=== PATIENT | male | born 1925 | race Caucasian/White ===

== ENCOUNTER 2016-09-01 10:52 | Emergency (ER) | payer OTHER, MEDICARE ==
[~2016-09-01] VITALS: Ht 172.7 cm; Wt 78.5 kg
[~2016-09-01 10:52] MED LIST: AMARYL4 M1 PO; AMIODARONE HCL200 M1 PO; CORDARONE200 MG PO; DAILY MULTIPLE1 EACH PO; DULCOLAX10 M1 RC; ESCITALOPRAM OX10 MG PO; FLEET ENEMA133 ML RC; GLUCAGON EMERGEN1 M1 IM; GLUCOSE GEL38 GM PO; HALOPERIDOL1 M1 PO; LANTUS SOL100 UNIT/1 SC; LEXAPRO5 M1 PO; LIDOCAINE1 EACH TOP; LIDODERM1 EACH EXT; MAGNESIUM400 M1 PO; MELOXICAM15 M1 PO; METOPROLOL TART25 M1 PO; MILK OF MA400 MG/52 PO; NAPROXEN250 M1 PO; NOVOLOG100 UNIT/2 SC; NYSTATIN60 GM TOP; OXACILLIN SODIUM2 G1 IV; POTASSIUM CHLO20 ME2 PO; PRAVACHOL20 M2 PO; REMEDY CALAZIM113 G1 TOP; RISPERDAL0.25 M1 PO; TRAMADOL HCL50 M1 PO; TRAZODONE HCL50 M1 PO; TYLENOL325 M1 PO
--- NOTE | 2016-09-01 11:40 | RADIOLOGY REPORT ---
EXAMINATION: XR ELBOW, LEFT CLINICAL INFORMATION: Left elbow swelling and bruising COMPARISON: None TECHNIQUE: Four views of the left elbow. FINDINGS: There is no acute fracture or dislocation. Joint spaces are maintained. Alignment is anatomic. Small osteophyte at the coronoid. Minimal calcification seen adjacent to the medial humeral epicondyle, possibly associated with the common flexor tendon. There is no joint effusion. Soft tissue swelling overlies the olecranon. Fluid extends along the ulnar aspect of the forearm. IMPRESSION: Soft tissue swelling overlying the olecranon could be associated with bursitis. No acute osseous abnormality.
--- NOTE | 2016-09-01 13:27 | ED GENERAL ADULT ---
History of Present Illness General Chief Complaint: Upper Extremity Problem Stated Complaint: LFT ARM DISCOLORATTION/BRUISING Source: patient Exam Limitations: no limitations Allergies Coded Allergies: morphine (UNKNOWN 07/05/15) Reconcile Medications Amiodarone HCl 200 MG TABLET 1 TAB PO DAILY HEART (Reported) Aspirin (Aspirin*) 81 MG TAB.CHEW 2 TAB PO DAILY HEART HEALTH (Reported) Escitalopram Oxalate 10 MG TABLET 1.5 TAB PO DAILY MOOD (Reported) Insulin Aspart (Novolog) 100 UNIT/1 ML VIAL DIABETES (Reported) Insulin Glargine,Hum.rec.anlog (Lantus Solostar) 100 UNIT/ML (3 ML) INSULN.PEN 18 UNIT SC DAILY DIABETES (Reported) Metoprolol Tartrate 25 MG TABLET 0.5 TAB PO BID HEART HEALTH (Reported) Multivitamin (Daily Multiple Vitamin) 1 EACH TABLET 1 TAB PO DAILY VITAMIN SUPPORT (Reported) [place]-3 Fatty Acids/Fish Oil (Fish Oil 1,000 MG Capsule) 340 MG-1,000 MG CAPSULE 1 CAP PO BID SUPPLEMENT (Reported) Potassium Chloride 20 MEQ TAB.ER.PRT 1 TAB PO DAILY SUPPLEMENT (Reported) Pravastatin Sodium (Pravachol) 20 MG TABLET 1 TAB PO QPM CHOLESTEROL ( Reported) Risperidone (Risperdal) 0.25 MG TABLET 1 TAB PO QHS AGITATION (Reported) Saxagliptin (Onglyza) 5 MG TABLET 1 TAB PO DAILY DIABETES (Reported) Trazodone HCl 50 MG TABLET 1 TAB PO QHS INSOMNIA (Reported) Ubidecarenone (Co Q-10) 100 MG CAPSULE 1 CAP PO DAILY SUPPLEMENT (Reported) Triage Note: PT TO ER WITH COMPLAINTS OF INCREASED BRUISING TO L ARM, PT TAKES THINNERS, WAS SEEN AT WALK IN YESTERDAY AND TOLD THAT HE NEEDS BLOOD WORK BUT THE LAB WAS CLOSED. PT STATES THAT HE NOTED THAT ELBOW WAS SWOLLEN SUNDAY AND BY SUNDAY THE BRUISING AND SWELLING STARTED. DENIES PAIN TO AREA. WHEN ASKED ABOUT INJURY , PT IS UNSURE BUT HE THINKS HE HIT ON DOOR WAY Triage Nurses Notes Reviewed? yes HPI: 89 yo Male with past medical history of atrial fibrillation on ASA 162mg daily, pacemaker in situ, diabetes mellitus, intracranial bleeding, MSSA septicemia, Right shoulder infection and I&D last year, is here because of left sided elbow bruise that he first noticed on Sunday. He went to urgent care clinic yesterday but could not run blood work, so was refered to the ED for workup and "blood thinner" test. He does not recall how he got the bruise in the first place. He thinks he must have banged it against a wall or a furniture. He denies neuropathy (and its symptoms). He has no problem moving his arm, elbow and his wrist, and denies any pain either. he is concerned about the increased amount of bruise and whether it could be bleeding from within or not. He denies any similar incident in the past, but did have an episode of intracranial bleeding. He denies fever, redness/warmth of the affected elbow joint. (ELLEN MOJICA MD) Vital Signs & Intake/Output Vital Signs & Intake/Output Vital Signs Date Time Temp Pulse Resp B/P B/P Pulse O2 O2 Flow FiO2 Mean Ox Delivery Rate 09/01 1544 82 164/86 09/01 1422 99 Room Air 09/01 1103 98.1 84 18 183/92 98 Room Air Past History Travel History Traveled to [place] past 21 day No Medical History Neurological: dementia, INTRACRANIAL BLEED EENT: NONE Cardiovascular: AFIB (paroxysmal), CAD (status post 5 stents), hypertension, hyperlipidemia, PVD Respiratory: NONE Gastrointestinal: NONE Hepatic: NONE Renal: NONE Musculoskeletal: NONE Psychiatric: NONE Endocrine: diabetes Blood Disorders: NONE Cancer(s): 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 (ELLEN MOJICA MD) Medical History Any Pertinent Medical History? see below for history Family History Hx Contributory? No (JUAN MANUEL ANDERSON DO) Review of Systems Review of Systems Constitutional: Reports: no symptoms. EENTM: Reports: no symptoms. Respiratory: Reports: no symptoms. Cardiovascular: Reports: no symptoms. GI: Reports: no symptoms. Genitourinary: Reports: no symptoms. Musculoskeletal: Reports: no symptoms. Skin: Reports: see HPI, rash. Neurological/Psychological: Reports: no symptoms. Hematologic/Endocrine: Reports: see HPI, bruising. All Other Systems: Reviewed and Negative (ELLEN MOJICA MD) Physical Exam Physical Exam General Appearance: well developed/nourished, no apparent distress, alert, awake , comfortable Head: atraumatic, normal appearance Eyes: Bilateral: normal appearance, PERRL, EOMI. Ears, Nose, Throat: normal pharynx, normal ENT inspection, hearing grossly normal Neck: normal inspection, supple, full range of motion Respiratory: normal breath sounds, chest non-tender, no respiratory distress Cardiovascular: regular rate/rhythm, normal peripheral pulses Peripheral Pulses: 4+ radial (R), 4+ radial (L) Extremities: normal capillary refill, normal range of motion, no edema, left elbow has extensive bruise Neurologic/Psych: no motor/sensory deficits, awake, alert, oriented x 3, normal gait, normal mood/affect Reflexes: 4+: knee (R), knee (L). Skin: intact, ecchymosis (left elbow), Patient has a large area of echhymosis approx 20 cm x 10 cm over his misdial aspect of his left elbow extending to the forearm., Patient as a healing/resolving bruise over the medial aspect of the riht forearm. Lymphatic: no anterior cervical doreen Core Measures ACS in differential dx? No CVA/TIA Diagnosis: No Severe Sepsis Present: No Septic Shock Present: No (ELLEN MOJICA MD) Core Measures ACS in differential dx? No CVA/TIA Diagnosis: No Severe Sepsis Present: No Septic Shock Present: No (JUSTIN HEREDIA,JUAN MANUEL Moreau) Progress Comments: Since the patient's vitals are stable, and he doesn't seem to be active bleeding. Given his hstory of intracranial bleed and this extensive ecchymosis, I ordered PT, PTT, CBC (for h/H), and would wait for the results, in case there is any derangement in any of those. Patient is on ASA but we cant to ascertain if that is the only cause of his bruising extensively. Of note, he is not on any anticoaluants (for afib) for unknown reason (?fall risk). Dr Anderson is made aware of the situation and I signed out the patient to Dr Anderson. (ELLEN MOJICA MD) Differential Diagnoses I considered the following diagnoses in my evaluation of the patient: [Contusion , coagulopathy, thrombocytopenia, aspirin-induced platelet affect, ecchymosis, traumatic bursitis, DVT] Plan of Care: Orders Procedure Date/time Status PARTIAL THROMBOPLASTIN TIME 09/01 134 Complete PROTHROMBIN TIME 09/01 134 Complete CBC WITHOUT DIFFERENTIAL 09/01 134 Complete Laboratory Tests 09/01/16 1425: PT 10.8, INR 1.03, APTT 34, CBC w Diff NO MAN DIFF REQ, RBC 4.75, MCV 88.5, MCH 28.9, RDW 13.4, MPV 7.8, Gran % 69.9, Lymphocytes % 18.5 L, Monocytes % 9.2, Eosinophils % 2.1, Basophils % 0.3, Absolute Granulocytes 4.5, Absolute Lymphocytes 1.2, Absolute Monocytes 0.6, Absolute Eosinophils 0.1, Absolute Basophils 0, PUBS MCHC 32.6 L Initial ED EKG: none (JUAN MANUEL ANDERSON DO) Departure Departure Condition: Stable Referrals: ЕЛЕНА JOSUE,BETTY Ames (PCP/Family) Departure Forms: Customer Survey General Discharge Information (ELLEN MOJICA MD) Departure Disposition: STILL A PATIENT Clinical Impression Primary Impression: Contusion Comments 09/01/16 3:25 PM The patient was seen and evaluated by me. He says that he bruised his left elbow several days ago. He developed ecchymosis to the left elbow. There is free range of motion. X-rays negative for fracture. He does have ecchymosis to the medial aspect of the left elbow. There is no objective swelling. Excellent radial pulse. It is nontender. Platelets are normal. He is on aspirin 160 mg daily. INR is normal. Assessment and plan contusion, ecchymosis left elbow. (JUAN MANUEL ANDERSON DO) Critical Care Note Critical Care Note Critical Care Time: non-applicable (JUAN MANUEL ANDERSON DO)
[2016-09-01] MEDS ORDERED: CO Q-10100 MG PO (13:58)
[2016-09-01] MEDS ORDERED: ASPIRIN81 M4 PO (13:58)
[2016-09-01] MEDS ORDERED: FISH OIL 1,0001 EACH PO (13:59)
[2016-09-01] MEDS ORDERED: ONGLYZA5 M1 PO (14:01)
[2016-09-01 14:44] LABS: ABSOLUTE BASOPHIL COUNT 0 /CUMM (0.0-0.2); ABSOLUTE EOSINOPHIL COUNT 0.1 /CUMM (0.0-0.7); ABSOLUTE GRANULOCYTE CT 4.5 /CUMM (1.4-6.5); ABSOLUTE LYMPH COUNT 1.2 /CUMM (1.2-3.4); ABSOLUTE MONOCYTE COUNT 0.6 /CUMM (0.10-0.60); BASOPHIL % 0.3 % (0.0-2.0); EOSINOPHIL % 2.1 % (0-5); GRANULOCYTE % 69.9 % (42.2-75.2); HEMATOCRIT 42.1 % (42-52); MEAN CORPUSCULAR HGB 28.9 PG (27.0-31.0); MEAN CORPUSCULAR HGB CONC 32.6 G/DL (33.0-37.0); MEAN CORPUSCULAR VOLUME 88.5 FL (80.0-94.0); MEAN PLATELET VOLUME 7.8 FL (7.4-10.4); PLATELET COUNT 180 /CUMM (130-400); RBC DISTRIBUTION WIDTH 13.4 % (11.5-14.5); RED BLOOD CELL CT 4.75 /CUMM (4.70-6.10); WHITE BLOOD CELL COUNT 6.4 /CUMM (4.8-10.8)
[2016-09-01 14:46] LABS: PT 10.8 SEC (9.4-12.5); PTT 34 SEC (25-37)
[2016-09-01 15:44] VITALS: BP 164/86
== END 2016-09-01 15:46 ==
LOC: ERH 10:52
DX: S50.02XA Contusion of left elbow, initial encounter (principal); X58.XXXA Exposure to other specified factors, initial encounter
CPT/HCPCS: 73080-LT